=== PATIENT | male | born 1955 | race African-American/Black ===

== ENCOUNTER 2022-07-25 14:31 | Emergency (ER) | payer MEDICARE ==
[~2022-07-25] VITALS: Ht 180.3 cm; Wt 77.1 kg
[2022-07-25] MEDS ORDERED: METHYLPREDNISOLONE SOD SUCC 125 MG/2ML VIAL IV ONE (15:15)
[2022-07-25] MEDS ORDERED: SODIUM CHLORIDE FLUSH 10 ML SYR INJ PRN (15:15)
[2022-07-25] MEDS ORDERED: ALBUTEROL/IPRATROPIUM 3 ML NEB NEB ONE (15:15)
[2022-07-25] MEDS ORDERED: METHYLPREDNISOLONE SOD SUCC 125 MG/2ML VIAL ONE (15:59)
[2022-07-25] MEDS ORDERED: ALBUTEROL/IPRATROPIUM 3 ML NEB ONE (16:00)
[2022-07-25] MEDS ORDERED: CEFDINIR300 MG PO (16:15)
[2022-07-25] MEDS ORDERED: BENZONATATE200 MG PO (16:15)
[2022-07-25] MEDS ORDERED: PREDNISONE50 MG PO (16:15)
[2022-07-25] MEDS ORDERED: IPRAT-ALBUT 0.5-3 ML NEB (16:15)
[2022-07-25] MEDS ORDERED: EASY NEB COMPR1 EACH (16:17)
== END 2022-07-25 16:32 | disposition home or self-care (01) ==
LOC: FSED 14:34
DX: R06.02 Shortness of breath (principal); J44.0 Chronic obstructive pulmonary disease with (acute) lower respiratory infection; R05.9 Cough, unspecified; I10 Essential (primary) hypertension; E78.5 Hyperlipidemia, unspecified; R94.31 Abnormal electrocardiogram [ECG] [EKG]
CPT/HCPCS: 71046; 80053; 82553; 84484; 85025; 93005; 99284; J2930